=== PATIENT | female | born 1960 | race Caucasian/White ===

== ENCOUNTER → 2019-01-19 | Outpatient (CLI) | payer BC ==
[~2019-01-19] MED LIST: ASPI81CH PO; CALCAVITDA; ESTR2 PO; PROG100 PO; Prinivil10 MG PO
[2019-01-21 15:06] LABS: HPV 16 Negative (Negative); HPV 18 Negative (Negative); HPV OTHER HR TYPES Negative (Negative)
== END | disposition home or self-care (01) ==
LOC: LAB SHORT 16:57 → LAB 16:57
PROVIDERS: Obstetrics & Gynecology Gynecology
DX: Z12.4 Encounter for screening for malignant neoplasm of cervix (principal)
CPT/HCPCS: 87624; G0123

== ENCOUNTER → 2020-03-25 | Outpatient (CLI) | payer BC ==
[~2020-03-25] MED LIST changes: +DOCU100 PO; +DULCOLAX400 MG/5 M PO; +IBUP800 PO; +LATA.005SO BOTHEYES; +PROM25 PO; +Percocet 5-3251 EACH PO; +SENN187 PO; +SIME80CH PO; +TIMO.25OPS RIGHTEYE
== END | disposition home or self-care (01) ==
LOC: LAB SHORT 09:50
DX: N30.01 Acute cystitis with hematuria (principal)
CPT/HCPCS: 87077; 87086; 87186

== ENCOUNTER 2020-08-03 08:53 | Day surgery (SDC) | payer BC ==
[2020-08-02 13:57] LABS: BASOPHILS ABSOLUTE AUTO 0.05 K/mm3 (0.00-0.23); BASOPHILS PERCENT AUTO 1 % (0-2); EOSINOPHILS PERCENT AUTO 2 % (0-6); Hematocrit 41.8 % (33.0-51.0); IMMATURE GRAN ABSOLUTE AUTO 0.01 K/mm3 (0.00-0.10); IMMATURE GRAN PERCENT AUTO 0 % (0-1); LYMPHOCYTES ABSOLUTE AUTO 1.42 K/mm3 (0.84-5.20); LYMPHOCYTES PERCENT AUTO 26 % (21-46); MONOCYTES ABSOLUTE AUTO 0.46 K/mm3 (0.16-1.47); MONOCYTES PERCENT AUTO 8 % (4-13); Mean Corpuscular HGB 30.6 pg (26.0-34.0); Mean Corpuscular HGB Conc 33.5 g/dL (31.5-36.5); Mean Corpuscular Volume 91 fL (80-100); Mean Platelet Volume 9.5 fL (9.1-12.4); NEUTROPHILS ABSOLUTE AUTO 3.48 K/mm3 (1.96-9.15); NEUTROPHILS PERCENT AUTO 63 % (41-73); Platelet Count 280 K/mm3 (150-400); RDW Coefficient Variation 11.9 % (11.7-14.2); RDW Standard Deviation 39.7 fL (35.1-46.3); Red Blood Cell Count 4.58 M/mm3 (3.80-5.20); White Blood Cell Count 5.52 K/mm3 (4.00-11.30)
--- NOTE | 2020-08-02 14:27 | NUR ---
called from lab patient attempting to get type and screen done too early lab will cancel order and patient to get type and screen done closer to or on day of surgery.
[2020-08-02 15:21] LABS: Anion Gap 5 mmol/L (6-16); Blood Urea Nitrogen 13 mg/dL (8-24); Bun/Creatinine Ratio 17.7 (12.0-20.0); CO2, Blood 29 mmol/L (21-32); Calcium, Blood 9.5 mg/dL (8.5-10.1); Chloride, Blood 103 mmol/L (98-108); Creatinine, Blood 0.73 mg/dL (0.40-1.00); Glomerular Filtration Rate >60 (60-); Glucose, Blood 89 mg/dL (70-99); Potassium, Blood 3.8 mmol/L (3.5-5.5); Sodium, Blood 137 mmol/L (136-145)
[~2020-08-03] VITALS: Ht 157.5 cm; Wt 66.2 kg
[~2020-08-03 08:53] MED LIST changes: -DOCU100 PO; -DULCOLAX400 MG/5 M PO; -IBUP800 PO; -LATA.005SO BOTHEYES; -PROM25 PO; -Percocet 5-3251 EACH PO; -SENN187 PO; -SIME80CH PO; -TIMO.25OPS RIGHTEYE
[2020-08-03] MEDS ORDERED: TIMO.25OPS RIGHTEYE (09:20)
[2020-08-03] MEDS ORDERED: LATA.005SO BOTHEYES (09:20)
--- NOTE | 2020-08-03 09:58 | NUR ---
Ambulatory in Day Surgery. History, Chart, Medications and Allergies reviewed before start of procedure.Patient confirms NPO status and agrees with scheduled surgery. Patient reports completing Chlorhexadine shower X2 prior to admission to hospital.Surgical site prepped with 2% Chlorhexidine cloth wipe. Lungs clear T/O to Auscultation.
--- NOTE | 2020-08-03 10:40 | NUR ---
REPORT GIVEN TO JENNIFER CHANEL
--- NOTE | 2020-08-03 11:14 | NUR ---
assumed care of patient. patient talking with rn
--- NOTE | 2020-08-03 15:51 | NUR ---
PT ARRIVED TO ROOM FROM PACU TRANSFERRED PT FROM [facility] TO BED. PT REPORTS PAIN TOLERABLE AT 4/10 AT THIS TIME. REPORTED NAUSEA W/MOVEMENT HAS RESOLVED. LAP INCISIONS TO ABDOMEN SECURED W/DERMABOND; CDI. SCANT AMONT VAG BLEEDING NOTED. ORIENTED TO ROOM. CALL LIGHT IN REACH. SPOUSE AT BEDSIDE. PROVIDED ICE WATER AND JELLO.
--- NOTE | 2020-08-03 17:46 | NUR ---
SUMMARY PT HAD 200 ML EMESIS. STUDENT RN MEDICATED PER ORDERS FOR N/V. PT WISHES TO HAVE CATHETER REMOVED. DISCUSSED GETTING UP IN 30 MINUTES AND IF PT DOES WELL, WILL DC CATHETER PER ORDERS. PT DENIES ANY OTHER NEEDS AT THIS TIME. SPOUSE AT BEDSIDE. CALL LIGHT IN REACH.
--- NOTE | 2020-08-04 03:36 | NUR ---
SHIFT SUMMARY POST OP DAY 1 FOR ROBOTIC HYSTERECTOMY. CATH TAKEN OUT YESTERDAY EVENING. HAS NOT VOMITED OR BEEN NAUSEOUS FOR THIS SHIFT. HX OF ANXIETY AND HYPERTENSION. MINIMAL BLEEDING ON PERIPAD. VSS. FLUIDS AT 125 AND MEDICATED FOR PAIN WITH TORADOL. MOVES TO THE RESTROOM INDEPENDENTLY.
[2020-08-04 04:56] LABS: BASOPHILS ABSOLUTE AUTO 0.02 K/mm3 (0.00-0.23); BASOPHILS PERCENT AUTO 0 % (0-2); EOSINOPHILS PERCENT AUTO 0 % (0-6); Hematocrit 32.8 % (33.0-51.0); Hemoglobin 11.1 g/dL (11.5-16.0); IMMATURE GRAN ABSOLUTE AUTO 0.01 K/mm3 (0.00-0.10); IMMATURE GRAN PERCENT AUTO 0 % (0-1); LYMPHOCYTES ABSOLUTE AUTO 1.58 K/mm3 (0.84-5.20); LYMPHOCYTES PERCENT AUTO 20 % (21-46); MONOCYTES ABSOLUTE AUTO 0.79 K/mm3 (0.16-1.47); MONOCYTES PERCENT AUTO 10 % (4-13); Mean Corpuscular HGB 30.8 pg (26.0-34.0); Mean Corpuscular HGB Conc 33.8 g/dL (31.5-36.5); Mean Corpuscular Volume 91 fL (80-100); NEUTROPHILS ABSOLUTE AUTO 5.55 K/mm3 (1.96-9.15); NEUTROPHILS PERCENT AUTO 70 % (41-73); Platelet Count 193 K/mm3 (150-400); RDW Coefficient Variation 12.1 % (11.7-14.2); RDW Standard Deviation 40.5 fL (35.1-46.3); White Blood Cell Count 7.95 K/mm3 (4.00-11.30)
--- NOTE | 2020-08-04 05:49 | NUR ---
POD 1 S/P ROBOTIC LAVH. PT VSS T/O NIGHT, INCISIONS CDI. PAIN MGD W/TORADOL W/REP RELIEF. EBENEZER PAD CHANGED X3 THIS SHIFT, PT VOIDING UREINE W/O DIFFICULTY, MAX PVR 47. PT ISMA REG PO, NO N/V, IS PASSING FLATUS. PT UP OOB W/SBA, ISMA WELL. IV SL THIS AM, ABD BINDER IN PLACE. PLAN TO D/C HOME TODAY.
[2020-08-04] MEDS ORDERED: DOCU100 PO (10:24)
[2020-08-04] MEDS ORDERED: IBUP800 PO (10:25)
[2020-08-04] MEDS ORDERED: DULCOLAX400 MG/5 M PO (10:25)
[2020-08-04] MEDS ORDERED: Percocet 5-3251 EACH PO (10:31)
[2020-08-04] MEDS ORDERED: SENN187 PO (10:33)
[2020-08-04] MEDS ORDERED: PROM25 PO (10:33)
[2020-08-04] MEDS ORDERED: SIME80CH PO (10:34)
--- NOTE | 2020-08-04 11:19 | NUR ---
Patient is lying in bed and alert. Patient tells me about the issues that led to her surgery and about the emotionally charged thoughts that surround a surgery like this. Patient also shares personal stories and information that lent itself to the exploration of sources of value and meaning and to discussion centered around the character and nature of God. Patient comes from a Nondenominational background but openly receives admonishment from the Bible that has a more evangelical bent. I normalize patient's experience and provide therapeutic listening, pastoral counselling psychologist and prayer. She responds well and states that our conversation has been meaningful and encouraging. Patient shows signs of a restored roby. I will continue to remain available to patient and family.
--- NOTE | 2020-08-04 13:22 | NUR ---
DISCHARGE PT PROVIDED WITH WRITTEN AND VERBAL DISCHARGE INSTRUCTIONS, SHE REPORTED UNDERSTANDING. PAIN MANAGED AT TIME OF DISCHARGE. PT REPORTED MINIMAL BLEEDING ON EBENEZER PAD. VSS. PT ESCORTED OUT IN WHEELCHAIR BY STUDENT NURSE ESQUIVEL.
--- NOTE | 2020-08-04 13:25 | NUR ---
DISCHARGE PT IS A&O X4. PT IS ABLE TO TOLLERATE REG DIET AND THIN LIQUIDS. PT SPOUSE WAS AT BEDSIDE AT TIME OF DISCHARGE AND INSTRUCTION. PT WAS GIVEN VERBAL AND WRITTEN INFORMATION REGARDING HOME AFTERCARE AND MEDICATION PER TAVARES CHANEL. PT VERBALIZED UNDERSTANDING. PT VSS. STUDENT NURSE SIERRA ASSISTED PT TO PACK BELONGINGS AND ESCORTED PT TO [place] VIA WC.
== END 2020-08-04 13:16 | disposition home or self-care (01) ==
LOC: ORSCMMR 08:53 → SURS 15:15 → ORSCMMR 08-04 13:16 → ORD 08-10 07:30
PROVIDERS: Obstetrics & Gynecology
PROC: 0UT94ZZ Resection of Uterus, Percutaneous Endoscopic Approach (ICD-10-PCS; principal; 2020-08-03 11:00)
PROC: 8E0W4CZ Robotic Assisted Procedure of Trunk Region, Percutaneous Endoscopic Approach (ICD-10-PCS; principal; 2020-08-03 11:00)
PROC: 0UT24ZZ Resection of Bilateral Ovaries, Percutaneous Endoscopic Approach (ICD-10-PCS; principal; 2020-08-03 11:00)
PROC: 0UT74ZZ Resection of Bilateral Fallopian Tubes, Percutaneous Endoscopic Approach (ICD-10-PCS; principal; 2020-08-03 11:00)
DX: D25.2 Subserosal leiomyoma of uterus (principal); N95.0 Postmenopausal bleeding; N85.02 Endometrial intraepithelial neoplasia [EIN]; I10 Essential (primary) hypertension; Z79.899 Other long term (current) drug therapy; Z79.82 Long term (current) use of aspirin
CPT/HCPCS: 58571; S2900; 36415; 80048; 85025; 86850; 86900; 86901; 88307; A9270; J0360; J0690; J1100; J1885; J2250; J2405; J2704; J3010; J7120

== ENCOUNTER → 2024-06-23 | Outpatient (CLI) | payer BC ==
[~2024-06-23] MED LIST changes: +AMLO10 PO; +DOCU100 PO; +DULCOLAX400 MG/5 M PO; +ESTRADIOL1 M1 PO; +IBUP800 PO; +LATA.005SO BOTHEYES; +PROM25 PO; +Percocet 5-3251 EACH PO; +SENN187 PO; +SIME80CH PO; +TIMO.25OPS RIGHTEYE; +VERAPAMIL ER120 M1 PO
[2024-06-23 17:25] LABS: BASOPHILS ABSOLUTE AUTO 0.09 K/mm3 (0.00-0.23); BASOPHILS PERCENT AUTO 2 % (0-2); EOSINOPHILS ABSOLUTE AUTO 0.22 K/mm3 (0.00-0.68); EOSINOPHILS PERCENT AUTO 4 % (0-6); Hematocrit 41.2 % (33.0-51.0); Hemoglobin 14.1 g/dL (11.5-16.0); IMMATURE GRAN ABSOLUTE AUTO 0.01 K/mm3 (0.00-0.10); IMMATURE GRAN PERCENT AUTO 0 % (0-1); LYMPHOCYTES ABSOLUTE AUTO 1.99 K/mm3 (0.84-5.20); LYMPHOCYTES PERCENT AUTO 38 % (21-46); MONOCYTES ABSOLUTE AUTO 0.59 K/mm3 (0.16-1.47); MONOCYTES PERCENT AUTO 11 % (4-13); Mean Corpuscular HGB 31.1 pg (26.0-34.0); Mean Corpuscular HGB Conc 34.2 g/dL (31.5-36.5); Mean Corpuscular Volume 91 fL (80-100); Mean Platelet Volume 9.3 fL (9.1-12.4); NEUTROPHILS ABSOLUTE AUTO 2.41 K/mm3 (1.96-9.15); NEUTROPHILS PERCENT AUTO 45 % (41-73); Platelet Count 255 K/mm3 (150-400); RDW Coefficient Variation 12.6 % (11.7-14.2); RDW Standard Deviation 41.4 fL (35.1-46.3); Red Blood Cell Count 4.54 M/mm3 (3.80-5.20); White Blood Cell Count 5.31 K/mm3 (4.00-11.30)
[2024-06-23 17:41] LABS: Albumin/Globulin Ratio 1.1 (0.8-1.8); Bilirubin, Total 0.4 mg/dL (0.1-1.0); Bun/Creatinine Ratio 19.7 (12.0-20.0); Calcium, Blood 9.3 mg/dL (8.5-10.1); Creatinine, Blood 0.71 mg/dL (0.40-1.00); Globulin, Blood 3.5 g/dL (2.2-4.0); Magnesium, Blood 2.1 mg/dL (1.6-2.4); Potassium, Blood 3.8 mmol/L (3.5-5.5); Total Protein, Blood 7.5 g/dL (6.4-8.2)
== END ==
LOC: LAB SHORT 17:21 → LAB 17:21
DX: R00.1 Bradycardia, unspecified (principal)
CPT/HCPCS: 80053; 83735; 85025

== ENCOUNTER 2024-06-24 16:02 | Emergency (ER) | payer BC ==
[~2024-06-24] VITALS: Ht 162.6 cm; Wt 65.8 kg
[~2024-06-24 16:02] MED LIST changes: -AMLO10 PO
[2024-06-24 17:11] VITALS: BP 179/78
[2024-06-24 17:40] LABS: BASOPHILS ABSOLUTE AUTO 0.06 K/mm3 (0.00-0.23); BASOPHILS PERCENT AUTO 1 % (0-2); EOSINOPHILS PERCENT AUTO 4 % (0-6); Hematocrit 42.6 % (33.0-51.0); Hemoglobin 14.5 g/dL (11.5-16.0); IMMATURE GRAN ABSOLUTE AUTO 0.01 K/mm3 (0.00-0.10); IMMATURE GRAN PERCENT AUTO 0 % (0-1); LYMPHOCYTES PERCENT AUTO 31 % (21-46); MONOCYTES ABSOLUTE AUTO 0.58 K/mm3 (0.16-1.47); MONOCYTES PERCENT AUTO 11 % (4-13); Mean Corpuscular HGB 30.8 pg (26.0-34.0); Mean Corpuscular Volume 90 fL (80-100); Mean Platelet Volume 9.5 fL (9.1-12.4); NEUTROPHILS ABSOLUTE AUTO 2.89 K/mm3 (1.96-9.15); NEUTROPHILS PERCENT AUTO 53 % (41-73); Platelet Count 275 K/mm3 (150-400); RDW Coefficient Variation 12.4 % (11.7-14.2); Red Blood Cell Count 4.71 M/mm3 (3.80-5.20); White Blood Cell Count 5.44 K/mm3 (4.00-11.30)
[2024-06-24 18:07] LABS: Free Thyroxine 0.89 ng/dL (0.70-1.60); Magnesium, Blood 2.3 mg/dL (1.6-2.4)
[2024-06-24 18:11] LABS: Albumin, Blood 3.9 g/dL (3.4-5.0); Albumin/Globulin Ratio 1.1 (0.8-1.8); Bilirubin, Total 0.7 mg/dL (0.1-1.0); Calcium, Blood 9.3 mg/dL (8.5-10.1); Creatinine, Blood 0.79 mg/dL (0.40-1.00); Globulin, Blood 3.6 g/dL (2.2-4.0); Phosphorus, Blood 3.6 mg/dL (2.5-4.9); Potassium, Blood 3.6 mmol/L (3.5-5.5); Thyroid Stimulating Hormone 1.94 uIU/mL (0.360-4.800); Total Protein, Blood 7.5 g/dL (6.4-8.2)
[2024-06-24] MEDS ORDERED: AMLO10 PO (19:15)
== END 2024-06-24 19:30 | disposition home or self-care (01) ==
LOC: ER 16:02
PROVIDERS: Student in an Organized Health Care Education/Training Program
DX: R00.1 Bradycardia, unspecified (principal); Z59.89 Other problems related to housing and economic circumstances; I10 Essential (primary) hypertension; Z79.891 Long term (current) use of opiate analgesic; Z79.1 Long term (current) use of non-steroidal anti-inflammatories (NSAID); Z79.899 Other long term (current) drug therapy; Z79.818 Long term (current) use of other agents affecting estrogen receptors and estrogen levels; Z17.21 Progesterone receptor positive status; Z79.83 Long term (current) use of bisphosphonates
CPT/HCPCS: 71046; 80053; 83735; 84100; 84439; 84443; 84484; 85025; 99285-25

== ENCOUNTER → 2024-11-01 | Outpatient (CLI) | payer BC ==
[~2024-11-01] MED LIST changes: +AMLO10 PO
== END ==
LOC: LAB 17:59 → LAB SHORT 17:59
DX: M79.672 Pain in left foot (principal)
CPT/HCPCS: 84550